=== PATIENT | female | born 1970 | race Caucasian/White ===

== ENCOUNTER 2020-02-08 08:14 | Emergency (ER) | payer BC, SELFPAY ==
[2020-02-08] VITALS (24 sets, daily range): BP systolic 25–118; BP diastolic 0–87; PULSE 82–119; RESP 8–32; O2SAT 96–100
[2020-02-08] MEDS: succinylcholine 20 mg/mL SDV 10mL 150 MG IVP (08:24)
--- NOTE | 2020-02-08 08:24 | XRR_ITS ---
PROCEDURE INFORMATION: Exam: XR Chest, 1 View Exam date and time: 02/08/2020 8:26 AM Age: 49 years old Clinical indication: Shortness of breath; Additional info: SOB TECHNIQUE: Imaging protocol: XR of the chest Views: 1 view. COMPARISON: No relevant prior studies available. FINDINGS: Tubes, catheters and devices: Partially imaged enteric tube reaching at least the mid gastric body. Endotracheal tube tip approximately 3 cm cephalad to the august in satisfactory position. Lungs: Unremarkable. No consolidation. Pleural space: Unremarkable. No evidence of pleural effusion or pneumothorax. Heart/Mediastinum: Unremarkable. No cardiomegaly. Bones/joints: Unremarkable. XR/XR chest 1V portable [id number] IMPRESSION: No acute findings. Support devices as described.
--- NOTE | 2020-02-08 08:24 | CTR_ITS ---
PROCEDURE INFORMATION: Exam: CT Head Without Contrast Exam date and time: 02/08/2020 8:37 AM Age: 49 years old Clinical indication: Altered mental status/memory loss; Prior surgery; Surgery type: Brain; Additional info: AMS TECHNIQUE: Imaging protocol: Computed tomography of the head without contrast. Radiation optimization: All CT scans at this facility use at least one of these dose optimization techniques: automated exposure control; mA and/or kV adjustment per patient size (includes targeted exams where dose is matched to clinical indication); or iterative reconstruction. COMPARISON: No relevant prior studies available. RADIATION DOSE METRICS: Total DLP (mGy-cm): 849.06 FINDINGS: Brain: 15 x 14 x 16 mm rim enhancing suprasellar mass (see image 28 series 601), nonspecific in the recent postsurgical setting. No intracranial hemorrhage. Normal martin-white differentiation with no evidence of edema or territorial infarct. No extra-axial fluid collection. Cerebral ventricles: No ventriculomegaly. Paranasal sinuses: Postsurgical changes of transsphenoidal pituitary resection with fractures of the ethmoid air cell walter and nasal septum and falling out of the sphenoid sinuses. Fluid/blood throughout the nasal cavity and scattered within the ethmoid air cells and nearly opacifying the right maxillary sinus. Bones: Postsurgical changes as above. Mastoid air cells: Visualized mastoid air cells are well aerated. Soft tissues: Unremarkable. CT/CT head wo con* [id number] IMPRESSION: 1. Postsurgical changes related to recent transsphenoidal pituitary tumor resection. There is a 16 mm rim enhancing suprasellar mass presumably representing postsurgical hemorrhage, although residual tumor is not excluded. 2. Otherwise no acute intra-axial findings. 3. Postsurgical changes involving the sinuses, with extensive fluid/blood throughout the nasal cavity and paranasal sinuses. Findings discussed with and acknowledged by sophia Herring at 02/08/2020 10:07 AM CDT with any questions answered. Radiation Dose CTDIVOL = (mGy): DLP = 849.06 (mGy-cm)
[2020-02-08] MEDS: sodium chloride 0.9% 1,000 ML 999 ML IV (08:25)
--- NOTE | 2020-02-08 08:25 | ECG_ITS ---
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 Measurements Intervals [place] Rate: 109 P: 76 MT: 144 QRS: 69 QRSD: 70 T: 81 QT: 337 QTc: 455 Interpretive Statements SINUS TACHYCARDIA ABNORMAL RHYTHM ECG No previous ECG available for comparison Electronically Signed On 02-08-2020 20:23:50 CDT by Waylon Ziegler M.D. [id number] f
[2020-02-08] MEDS: EPINEPHrine 0.1 mg/mL SYR 10 mL IVP (08:30)
--- NOTE | 2020-02-08 08:31 | W.ED.HEATRA ---
HPI - Head Injury General: Chief complaint: Head Injury Stated complaint: NOSE BLEED S/P SURGERY Time Seen by Provider: 02/08/20 08:24 Source: EMS Mode of arrival: EMS Limitations: altered mental status History of Present Illness: HPI Narrative: 49-year-old female came in by EMS. Patient had a pituitary tumor removed 2 weeks ago at [facility]. Family states she woke up this morning and had a severe nosebleed. Heema states they arrived and she had a nosebleed that since stopped but on the way here she has became altered unresponsive and hypotensive. Patient currently has tachypnea with shallow respirations and is completely unresponsive. She is pale and diaphoretic and hypotensive with blood pressure in the 50s. Not able to get any history from patient. Review of Systems General: Reports: ROS unobtainable due to medical condition PFS ED PFSH: Medical History (Updated 02/08/20 @ 14:27 by Ajay Cardona MD) Hypothyroidism Pituitary tumor Surgical History (Updated 02/08/20 @ 14:27 by Ajay Cardona MD) History of knee surgery History of tubal ligation Physical Exam Const: COMMON NORMALS: negative for patient oriented x3 EXAM LIMITATIONS: altered mental status GENERAL APPEARANCE: ill appearing and diaphoretic HENMT: COMMON NORMALS: normocephalic and atraumatic HEAD & SCALP: normocephalic and atraumatic OTHER: Dried blood in nares no active nosebleed Eye: COMMON NORMALS: Equal, round and reactive pupils present and EOMs intact bilaterally PUPIL: Yes Equal, round and reactive pupils present Neck/C-Spine: COMMON NORMALS: full ROM and supple Chest: COMMONS NORMALS: normal inspection of the chest and normal palpation of entire chest wall Resp: COMMON NORMALS: clear to auscultation bilaterally EFFORT & INSPECTION: Yes tachypneic, Yes respiratory distress and Yes decreased respiratory effort AUSCULTATION: clear to auscultation bilaterally Cardio: COMMON NORMALS: regular rhythm and No murmurs present (Cardio) RATE: tachycardic RHYTHM: regular rhythm GI: COMMON NORMALS: Normal to inspection, nondistended, normoactive bowel sounds present, Soft to palpation, non-tender and no masses PALPATION: Yes Soft to palpation Extremity: COMMON NORMALS: normal to inspection and full ROM Neuro: COMMON NORMALS: negative for patient oriented x3 Psych: COMMON NORMALS: negative for mental status grossly normal Skin: COMMON NORMALS: no rashes or lesions noted and no wounds GENERAL SKIN EXAM: no rashes or lesions noted Procedures Intubation sedative: Etomidate paralytic: Succinylcholine Laryngoscope: Cristobal Assist Device Used: fiber optic device ET Tube Size: 8 ET Tube Uncuffed: No Tube Secured Depth (cm): 25 Tube Secured Location: teeth Tube Placement Confirmation: visualized tube passing through cords, equal breath sounds bilaterally, no breath sounds over epigastrium and confirmation by capnometry Patient Tolerated Procedure: well Intubation Complications: none Course Reevaluation(s): Reevaluation #1: Patient was intubated upon arrival. I did give her 0.1 mL push dose pressor of epinephrine as her pressure was in the 40s. Will start on levo fed at this time. Will get head CT along with other blood work. She appears to be anemic as she is quite pale will order blood products. Time: 08:34 Vital Signs: Vital signs: Vital Signs Pulse Rate 91 02/08/20 12:32 Respiratory Rate 14 02/08/20 12:32 Blood Pressure 92/64 02/08/20 12:32 Pulse Oximetry 98 02/08/20 12:32 MDM - Head Injury MDM Narrative: Medical decision making narrative: Patient presents here initially in shock like it with hypovolemic shock from massive nosebleed. Patient here is much improved after blood products was given. Patient has been down the ER for quite some time as we are having difficulty finding placement. While patient was here blood pressure has stabilized and was able to wean her off of the pressors. Patient started to wake up roughly 3 hours in the stay and was able to follow all commands so I did extubate her. Spoke to multiple facilities [facility] and [facility] and all were on divert. Spoke to physician here who felt patient likely need neurosurgery and ENT which we do not have here. I did speak to [facility] in [place] and spoke to physician there along with ENT and they accepted there. Patient stable here and will transfer there. Lab Data: Labs: Lab Results 02/08/20 02/08/20 02/08/20 Range/Units 08:30 08:30 08:30 WBC 20.5 H (4.0-10.0) 10^3/ uL RBC 2.78 L (4.1-5.3) 10^6/u L Hgb 8.7 L (11.5-15.3) g/dL Hct 27.1 L (37.0-47.0) % MCV 97.5 (81-99) fL MCH 31.3 (28.0-34.0) pg MCHC 32.1 (30.0-36.0) g/dL RDW 13.8 (12.1-15.1) % Plt Count 707 H (130-400) 10^3/c mm MPV 11.3 H (7.4-10.4) fL Neut % (Auto) 48.8 % Lymph % (Auto) 44.0 % [place] % (Auto) 3.7 % Eos % (Auto) 1.9 % Baso % (Auto) 1.1 % Neut # (Auto) 10.01 H (1.8-7.7) 10^3/u L Lymph # (Auto) 9.0 H (0.8-4.8) 10^3/u L [place] # (Auto) 0.8 (0.2-0.9) 10^3/u L Eos # (Auto) 0.4 (0.0-0.8) 10^3/u L Baso # (Auto) 0.2 H (0.0-0.1) 10^3/u L Nucleated RBC % (a uto) 0 % Nucleated RBCs # 0.0 /100WBC PT 13.30 (12.1-14.9) SECO NDS INR 0.98 (0.8-1.2) Specimen Type Sample Site ABG pH (7.35-7.45) ABG pCO2 (35-45) mmHg ABG pO2 (80.0-100.0) mmH g ABG HCO3 (22-26) mmol/L ABG Base Excess (-2.0-2.0) mmol/ L Marcus Test Hematocrit (37-47) % Hgb O2 Saturation (95-100) % Carboxyhemoglobin (0.4-20.1) %THgb Methemoglobin (0.4-1.5) % Total Hemoglobin (12-16) g/dL O2 Delivery Device Mechanical Rate FiO2 % Tidal Volume PEEP cmH20 Sport Shoe Spike Assembler ID Sodium 130 L (136-145) mmol/L Potassium 3.1 L (3.5-5.1) mmol/L Chloride 95 L (98-107) mmol/L Carbon Dioxide 19 L (22-29) mmol/L Anion Gap 19.1 H (5-19) BUN 14 (6-20) mg/dL Creatinine 1.0 H (0.5-0.9) mg/dL GFR Calculation 59.4 L (90-130) mL/min Glucose 219 H (65-115) mg/dL Calculated Osmolal ity 277 L (285-295) mOsm/k g Lactate (0.5-2.2) mmol/L Calcium 8.2 L (8.5-10.5) mg/dL Magnesium 2.3 (1.7-2.3) mg/dL Total Bilirubin 0.3 (0.15-1.2) mg/dL AST 23 (0-32) U/L ALT 36 H (0-33) U/L Alkaline Phosphata se 95 (35-105) IU/L Total Protein 6.1 L (6.6-8.7) g/dL Albumin 3.1 L (3.5-5.2) g/dL Globulin 3.0 (1.3-4.6) g/dL Random Cortisol (2.47-19.5) ug/m L Urine Color (Yellow) Urine Appearance (CLEAR) Urine pH (5-7) Ur Specific Gravit y (1.005-1.030) Urine Protein (Negative) Urine Glucose (UA) (Normal) Urine Ketones (Negative) Urine Blood (Negative) Urine Nitrate (Negative) Urine Bilirubin (Negative) Urine Urobilinogen (Negative) mg/dL Ur Leukocyte Karena ase (Negative) Urine RBC (0-2) /hpf Urine WBC (0-5) /hpf Ur Squamous Epith Cells (0-5) /hpf Calcium Oxalate Cr ystal /hpf Amorphous Sediment Urine Bacteria (NONE) /hpf Blood Type Rho(D) Type Antibody Screen Crossmatch 02/08/20 02/08/20 02/08/20 Range/Units 08:30 08:34 08:50 WBC (4.0-10.0) 10^3/ uL RBC (4.1-5.3) 10^6/u L Hgb (11.5-15.3) g/dL Hct (37.0-47.0) % MCV (81-99) fL MCH (28.0-34.0) pg MCHC (30.0-36.0) g/dL RDW (12.1-15.1) % Plt Count (130-400) 10^3/c mm MPV (7.4-10.4) fL Neut % (Auto) % Lymph % (Auto) % [place] % (Auto) % Eos % (Auto) % Baso % (Auto) % Neut # (Auto) (1.8-7.7) 10^3/u L Lymph # (Auto) (0.8-4.8) 10^3/u L [place] # (Auto) (0.2-0.9) 10^3/u L Eos # (Auto) (0.0-0.8) 10^3/u L Baso # (Auto) (0.0-0.1) 10^3/u L Nucleated RBC % (a uto) % Nucleated RBCs # /100WBC PT (12.1-14.9) SECO NDS INR (0.8-1.2) Specimen Type Arterial Sample Site Brachial, left ABG pH 7.34 L (7.35-7.45) ABG pCO2 31.5 L (35-45) mmHg ABG pO2 497.0 H (80.0-100.0) mmH g ABG HCO3 16.8 L (22-26) mmol/L ABG Base Excess -8.2 L (-2.0-2.0) mmol/ L Marcus Test N/a Hematocrit 20.0 L (37-47) % Hgb O2 Saturation 98.7 (95-100) % Carboxyhemoglobin 0.7 (0.4-20.1) %THgb Methemoglobin 1.2 (0.4-1.5) % Total Hemoglobin 6.5 L (12-16) g/dL O2 Delivery Device Vent Mechanical Rate 15.0 FiO2 100.0 % Tidal Volume 0.40 PEEP 8.0 cmH20 Sport Shoe Spike Assembler ID Ed Sodium (136-145) mmol/L Potassium (3.5-5.1) mmol/L Chloride (98-107) mmol/L Carbon Dioxide (22-29) mmol/L Anion Gap (5-19) BUN (6-20) mg/dL Creatinine (0.5-0.9) mg/dL GFR Calculation (90-130) mL/min Glucose (65-115) mg/dL Calculated Osmolal ity (285-295) mOsm/k g Lactate 3.7 H (0.5-2.2) mmol/L Calcium (8.5-10.5) mg/dL Magnesium (1.7-2.3) mg/dL Total Bilirubin (0.15-1.2) mg/dL AST (0-32) U/L ALT (0-33) U/L Alkaline Phosphata se (35-105) IU/L Total Protein (6.6-8.7) g/dL Albumin (3.5-5.2) g/dL Globulin (1.3-4.6) g/dL Random Cortisol (2.47-19.5) ug/m L Urine Color Yellow (Yellow) Urine Appearance Sl hazy (CLEAR) Urine pH 6 (5-7) Ur Specific Gravit y 1.015 (1.005-1.030) Urine Protein Neg (Negative) Urine Glucose (UA) Norm (Normal) Urine Ketones Negative (Negative) Urine Blood Neg (Negative) Urine Nitrate Negative (Negative) Urine Bilirubin Neg (Negative) Urine Urobilinogen Norm (Negative) mg/dL Ur Leukocyte Karena ase Negative (Negative) Urine RBC None (0-2) /hpf Urine WBC 0-4 H (0-5) /hpf Ur Squamous Epith Cells 15-25 H (0-5) /hpf Calcium Oxalate Cr ystal 0-4 H /hpf Amorphous Sediment Not Reportable Urine Bacteria 1+ H (NONE) /hpf Blood Type Rho(D) Type Antibody Screen Crossmatch 02/08/20 02/08/20 Range/Units 08:53 12:05 WBC (4.0-10.0) 10^3/ uL RBC (4.1-5.3) 10^6/u L Hgb (11.5-15.3) g/dL Hct (37.0-47.0) % MCV (81-99) fL MCH (28.0-34.0) pg MCHC (30.0-36.0) g/dL RDW (12.1-15.1) % Plt Count (130-400) 10^3/c mm MPV (7.4-10.4) fL Neut % (Auto) % Lymph % (Auto) % [place] % (Auto) % Eos % (Auto) % Baso % (Auto) % Neut # (Auto) (1.8-7.7) 10^3/u L Lymph # (Auto) (0.8-4.8) 10^3/u L [place] # (Auto) (0.2-0.9) 10^3/u L Eos # (Auto) (0.0-0.8) 10^3/u L Baso # (Auto) (0.0-0.1) 10^3/u L Nucleated RBC % (a uto) % Nucleated RBCs # /100WBC PT (12.1-14.9) SECO NDS INR (0.8-1.2) Specimen Type Sample Site ABG pH (7.35-7.45) ABG pCO2 (35-45) mmHg ABG pO2 (80.0-100.0) mmH g ABG HCO3 (22-26) mmol/L ABG Base Excess (-2.0-2.0) mmol/ L Marcus Test Hematocrit (37-47) % Hgb O2 Saturation (95-100) % Carboxyhemoglobin (0.4-20.1) %THgb Methemoglobin (0.4-1.5) % Total Hemoglobin (12-16) g/dL O2 Delivery Device Mechanical Rate FiO2 % Tidal Volume PEEP cmH20 Sport Shoe Spike Assembler ID Sodium (136-145) mmol/L Potassium (3.5-5.1) mmol/L Chloride (98-107) mmol/L Carbon Dioxide (22-29) mmol/L Anion Gap (5-19) BUN (6-20) mg/dL Creatinine (0.5-0.9) mg/dL GFR Calculation (90-130) mL/min Glucose (65-115) mg/dL Calculated Osmolal ity (285-295) mOsm/k g Lactate (0.5-2.2) mmol/L Calcium (8.5-10.5) mg/dL Magnesium (1.7-2.3) mg/dL Total Bilirubin (0.15-1.2) mg/dL AST (0-32) U/L ALT (0-33) U/L Alkaline Phosphata se (35-105) IU/L Total Protein (6.6-8.7) g/dL Albumin (3.5-5.2) g/dL Globulin (1.3-4.6) g/dL Random Cortisol 109.50 H (2.47-19.5) ug/m L Urine Color (Yellow) Urine Appearance (CLEAR) Urine pH (5-7) Ur Specific Gravit y (1.005-1.030) Urine Protein (Negative) Urine Glucose (UA) (Normal) Urine Ketones (Negative) Urine Blood (Negative) Urine Nitrate (Negative) Urine Bilirubin (Negative) Urine Urobilinogen (Negative) mg/dL Ur Leukocyte Karena ase (Negative) Urine RBC (0-2) /hpf Urine WBC (0-5) /hpf Ur Squamous Epith Cells (0-5) /hpf Calcium Oxalate Cr ystal /hpf Amorphous Sediment Urine Bacteria (NONE) /hpf Blood Type O Positive Rho(D) Type Positive Antibody Screen Negative Crossmatch See Detail Imaging Data^: CT Head: Attestation: I personally reviewed and interpreted this imaging study as follows: Radiologist's impression: [address] [address] [address] Scan Report Signed Patient: Ilene John Unit #: [id number] : 1970 Age/Sex: 49 / F ADM Date: 02/08/20 Loc: ER Room/Bed: Attending Dr: Ordering Provider/Ordering MD: Annamaria Sage MD Date of Service: 02/08/20 Procedure(s): CT head wo con* [id number] Accession Number(s): [id number] Report Number: [id number] PROCEDURE INFORMATION: Exam: CT Head Without Contrast Exam date and time: 02/08/2020 8:37 AM Age: 49 years old Clinical indication: Altered mental status/memory loss; Prior surgery; Surgery type: Brain; Additional info: AMS TECHNIQUE: Imaging protocol: Computed tomography of the head without contrast. Radiation optimization: All CT scans at this facility use at least one of these dose optimization techniques: automated exposure control; mA and/or kV adjustment per patient size (includes targeted exams where dose is matched to clinical indication); or iterative reconstruction. COMPARISON: No relevant prior studies available. RADIATION DOSE METRICS: Total DLP (mGy-cm): 849.06 FINDINGS: Brain: 15 x 14 x 16 mm rim enhancing suprasellar mass (see image 28 series 601), nonspecific in the recent postsurgical setting. No intracranial hemorrhage. Normal martin-white differentiation with no evidence of edema or territorial infarct. No extra-axial fluid collection. Cerebral ventricles: No ventriculomegaly. Paranasal sinuses: Postsurgical changes of transsphenoidal pituitary resection with fractures of the ethmoid air cell walter and nasal septum and falling out of the sphenoid sinuses. Fluid/blood throughout the nasal cavity and scattered within the ethmoid air cells and nearly opacifying the right maxillary sinus. Bones: Postsurgical changes as above. Mastoid air cells: Visualized mastoid air cells are well aerated. Soft tissues: Unremarkable. CT/CT head wo con* [id number] IMPRESSION: 1. Postsurgical changes related to recent transsphenoidal pituitary tumor resection. There is a 16 mm rim enhancing suprasellar mass presumably representing postsurgical hemorrhage, although residual tumor is not excluded. 2. Otherwise no acute intra-axial findings. 3. Postsurgical changes involving the sinuses, with extensive fluid/blood throughout the nasal cavity and paranasal sinuses. CXR: Radiologist's impression: [address] [address] XRay Report Signed Patient: Ilene John Unit #: [id number] : 1970 Age/Sex: 49 / F ADM Date: 02/08/20 Loc: ER Room/Bed: Attending Dr: Ordering Provider/Ordering MD: Annamaria Sage MD Date of Service: 02/08/20 Procedure(s): XR chest 1V portable [id number] Accession Number(s): [id number] Report Number: [id number] PROCEDURE INFORMATION: Exam: XR Chest, 1 View Exam date and time: 02/08/2020 8:26 AM Age: 49 years old Clinical indication: Shortness of breath; Additional info: SOB TECHNIQUE: Imaging protocol: XR of the chest Views: 1 view. COMPARISON: No relevant prior studies available. FINDINGS: Tubes, catheters and devices: Partially imaged enteric tube reaching at least the mid gastric body. Endotracheal tube tip approximately 3 cm cephalad to the august in satisfactory position. Lungs: Unremarkable. No consolidation. Pleural space: Unremarkable. No evidence of pleural effusion or pneumothorax. Heart/Mediastinum: Unremarkable. No cardiomegaly. Bones/joints: Unremarkable. XR/XR chest 1V portable [id number] IMPRESSION: No acute findings. Support devices as described. Critical Care Time Critical Care Time: Critical Care Time: Yes Total Critical Care Time: 36 Attestation: This case had a high probability of a clinically significant, sudden, or life threatening deterioration of this patient's condition which required my full and direct attention, intervention and personal management. Discharge Plan Discharge Patient Disposition: Xfer Other Clinical Impression: Hypovolemic shock, Epistaxis Condition: Stable Discharge Orders: Transfer Out of Facility (Order); Ordered 02/08/20 Ordered By: Annamaria Sage Referrals: Rae Conway MD [Primary Care Provider] - Coding Level of Care Code ED Senior Games Technician for Chg Fwd Exam Comprehensive
[2020-02-08] MEDS: hydrocortisone 100 mg/2 mL SDV IVP (08:39)
[2020-02-08] MEDS: vecuronium 10 mg SDV IVP (08:43)
[2020-02-08 08:44] LABS: ABG PCO2 31.5 mmHg (35-45); ABG PH Result 7.34 (7.35-7.45); Base Excess ABG -8.2 mmol/L (-2.0-2.0); Blood Gas Sample Type Arterial; Carboxyhemoglobin 0.7 %THgb (0.4-20.1); HCO3 ABG 16.8 mmol/L (22-26); HGB O2 Sat 98.7 % (95-100); Methemoglobin 1.2 % (0.4-1.5); Total Hemoglobin 6.5 g/dL (12-16)
[2020-02-08 08:46] LABS: Blood Gas Operator Identificat ED; Blood Gas Sample Site Brachial, left; Oxygen Device VENT
[2020-02-08 08:58] LABS: Basophils # 0.2 10^3/uL (0.0-0.1); Basophils % 1.1 %; Eosinophils # 0.4 10^3/uL (0.0-0.8); Eosinophils % 1.9 %; Hematocrit 27.1 % (37.0-47.0); Hemoglobin 8.7 g/dL (11.5-15.3); Mean Corpuscular HGB Conc 32.1 g/dL (30.0-36.0); Mean Corpuscular Hemoglobin 31.3 pg (28.0-34.0); Mean Corpuscular Volume 97.5 fL (81-99); Mean Platelet Volume 11.3 fL (7.4-10.4); Monocytes # 0.8 10^3/uL (0.2-0.9); Monocytes % 3.7 %; Neutrophils # 10.01 10^3/uL (1.8-7.7); Neutrophils % 48.8 %; Nucleated Red Blood Cells % 0 %; Platelet Count 707 10^3/cmm (130-400); Red Blood Count 2.78 10^6/uL (4.1-5.3); Red Cell Distribution Width 13.8 % (12.1-15.1); White Blood Count 20.5 10^3/uL (4.0-10.0)
[2020-02-08 09:08] LABS: Add Urine Microscopic? YES; Bilirubin Urine Neg (Negative); Blood Urine Neg (Negative); Glucose Urine UA Norm (Normal); Ketones Urine Negative (Negative); Leukocyte Esterase Urine Negative (Negative); Nitrate Urine Negative (Negative); Protein Urine Neg (Negative); Specific Gravity, Urine 1.015 (1.005-1.030); Urine Appearance SL Hazy (CLEAR); Urine Color Yellow (Yellow); Urobilinogen Urine Norm (Negative); pH Urine 6 (5-7)
[2020-02-08 09:10] LABS: INR 0.98 (0.8-1.2)
[2020-02-08 09:10] LABS: Add Urine Culture? No; Bacteria Urine 1+ /hpf; Calcium Oxalate Crystals Urine 0-4 /hpf; Squamous Epithelial Cell Urine 15-25 /hpf (0-5); WBC Urine 0-4 /hpf (0-5)
[2020-02-08 09:15] LABS: Alanine Aminotransferase 36 U/L (0-33); Albumin Level 3.1 g/dL (3.5-5.2); Alkaline Phosphatase 95 IU/L (35-105); Blood Urea Nitrogen 14 mg/dL (6-20); Calcium 8.2 mg/dL (8.5-10.5); Carbon Dioxide 19 mmol/L (22-29); Chloride 95 mmol/L (98-107); Glomerular Filtration Rate 59.4 mL/min (90-130); Glucose 219 mg/dL (65-115); Lactate (Lactic Acid level) 3.7 mmol/L (0.5-2.2); Magnesium 2.3 mg/dL (1.7-2.3); Osmolality Calculated 277 mOsm/kg (285-295); Sodium 130 mmol/L (136-145); Total Bilirubin 0.3 mg/dL (0.15-1.2); Total Protein 6.1 g/dL (6.6-8.7)
[2020-02-08 09:17] LABS: Anion Gap 19.1 (5-19); Potassium 3.1 mmol/L (3.5-5.1)
[2020-02-08 09:18] LABS: Aspartate Amino Transferase 23 U/L (0-32)
[2020-02-08 10:02] LABS: Slide Review Slide Review Perform
--- NOTE | 2020-02-08 10:12 | PC.RESP ---
ER notified therapist about patient going to CT twice. Therapist was in a code at this time. When therapist got down to ER, nurse of patient had patient unhooked from vent and had them in CT already. Nurse was bagging patient at this time. Therapist took over at this time. When patient was done with CT, the nurse and therapist took patient back to the room where the therapist found the vent alarming and still in activation mode (because vent was not put on standby at the time of transfer by the nurse).
--- NOTE | 2020-02-08 11:01 | PC.NURSE ---
Patient responding appropriately to verbal commands. ETT removed. NC applied. Patient able to maintain her own airway.
[2020-02-08] MEDS: cefTRIAXone 1,000 MG in sodium chloride 0.9% (plus) 50 ML 100 MG IV (13:51)
[2020-02-08] MEDS: azithromycin 500 MG in sodium chloride 0.9% 250 ML 250 MG IV (13:52)
--- NOTE | 2020-02-08 14:24 | PM.CONSULT ---
Providers/Reason For Consult Consulting Physican/Specialty*: Ajay Cardona hospitalist Reason for Consult*: Nosebleed Primary Care Provider: Rae Conway MD History of Present Illness History of Present Illness Ilene John is a 49 year old female who came into the emergency department with complaints of severe right-sided nosebleed. This occurred abruptly, around 6:30 AM right sided. She became unresponsive, and required significant resuscitation in the emergency department including intubation. She required pressors. She is currently getting a blood transfusion. The emergency department physician alerts me that the bleeding stopped abruptly while all of this was going on. Patient's , and patient who is now extubated report that she had a similar nosebleed 1 week ago, but not as severe. She reported it occurred abruptly, and stopped abruptly. 1 week prior to that she had pituitary surgery, through her nasal cavity. She denies any headache, fever. She was confused, following extubation but is gradually improving according to . Review of Systems General: Reports: 10 or more systems reviewed and unremarkable except in HPI and below Const: Denies: fever(s) Eyes: Denies: change in vision ENMT: Denies: throat pain Card: Denies: chest pain Resp: Denies: dyspnea GI: Denies: abdominal pain : Denies: flank pain Musc: Denies: neck pain Skin/Breast: Denies: rash Neuro: Denies: headache(s) Endo: Denies: polyuria All/Imm: Denies: urticaria Meds/Allergies Home Medications and Allergies Home Medications Medication Instructions Recorded Confirmed Last Taken Type [place] See Rx Instructions .ROUTE .COMPLEX 02/08/20 02/08/20 Unknown History Synthroid See Rx Instructions .ROUTE .COMPLEX 02/08/20 02/08/20 Unknown History hydrochlorothiazide See Rx Instructions .ROUTE .COMPLEX 02/08/20 02/08/20 Unknown History Current Medications Current Medications Generic Name Dose Route Start Last Admin Trade Name Freq PRN Reason Stop Dose Admin Fentanyl 1,000 mcg/ Sodium 100 mls @ 0 mls/hr 02/08/20 08:30 02/08/20 08:54 Chloride IV 50 mcg/hr .Q0M MARTIN 5 mls/hr Administration Protocol Per Protocol Norepinephrine Bitartrate 4 mg 254 mls @ 0 mls/hr 02/08/20 08:30 02/08/20 12:15 / Dextrose IV 0 mcg/min .Q0M MARTIN 0 mls/hr Titration Protocol Per Protocol PFSH Acute PFSH: Medical History (Updated 02/08/20 @ 14:28 by Ajay Cardona MD) Hypothyroidism Pituitary tumor Surgical History (Updated 02/08/20 @ 14:27 by Ajay Cardona MD) History of knee surgery History of tubal ligation Family History (Updated 02/08/20 @ 14:27 by Ajay Cardona MD) Other CAD (coronary artery disease) Social History (Updated 02/08/20 @ 14:27 by Ajay Cardona MD) Smoking and tobacco status: never smoked Alcohol intake: never Substance/Drug Use: never Vitals/I&O/Wt Last Vital Signs Pulse 91 02/08/20 12:32 Resp 14 02/08/20 12:32 BP 92/64 02/08/20 12:32 Pulse Ox 98 02/08/20 12:32 02/07/20 02/08/20 02/08/20 22:59 06:59 14:59 Intake Total 70.352 / 70.352 Balance 70.352 / 70.352 Physical Exam Narrative: EXAM NARRATIVE: General exam no apparent distress, slow to speak Neurologic: No obvious focal deficit HEENT: Pupils equally round. Slight amount of blood right nares. Oropharynx clear. Neck supple no lymphadenopathy thyromegaly Cardiovascular regular rate and rhythm without murmur Lungs clear Abdomen is soft with positive bowel sounds. No obvious organomegaly was deferred Extremities no cyanosis clubbing or edema, cap refill brisk Skin no rash Urinary Catheter Management^: Varma: Cath Placed During This Visit: yes Reason for Continuing Indwelling Catheter: Other Urinary Catheter Date of Insertion: 02/08/20 Urinary Catheter Time of Insertion: 08:37 Data Micro: Micro: Microbiology 02/08/20 12:00 Blood Culture - Pr eliminary Blood SPECIMEN [facility] 02/08/20 12:05 Blood Culture - Pr eliminary Blood SPECIMEN [facility] Other Data: Other data: pH 7.34, PCO2 31, PO2 497 on ventilator at 100% FiO2 Urine contaminated with significant squamous epithelial Random cortisol approximately 110 LFTs normal with ALT slight elevation of 36 INR 0.98 Chest x-ray no infiltrate CT head postsurgical changes at pituitary tumor resection, possibly representing postsurgical hemorrhage. Extensive fluid and blood throughout the nasal cavity and paranasal sinuses A&P Assessment and plan (1) Epistaxis: Unclear if this was a significant sinus bleed, secondary to her postoperative status. She had another bleed 1 week ago. Severe and acute. She requires ENT and neurosurgical evaluation. I feel uncomfortable managing this without their support considering blood noticed in sinus on CT, recent neurosurgical status and no availability of neurosurgical or ENT services here. At this point they are reviewing other options for transfer of the patient as her neurosurgeon at [facility] does not have any bed availability. I reviewed with the family here our limitations, should we not be able to arrange transfer. Status: Acute (2) Hypovolemic shock: Secondary to acute blood loss Agree with transfusion per the emergency department secondary to patient's hypotensive state Status: Acute (3) Acute anemia: Secondary to acute blood loss with concerned this is bleeding from sinus, from her previous surgical site with pituitary removal 2 weeks ago See above Status: Acute Additional A&P Information History of hypothyroidism History of pituitary removal, currently on hydrocortisone. She received a dose of hydrocortisone by the emergency department. Full code Holding all anticoagulation secondary to bleeding Consult Attestations Medical Necessity Statement: Not applicable Coding Level of Care Code Acute [employer] for [employer] Isidro Diagnoses Epistaxis R04.0 Hypovolemic shock R57.1 Acute anemia D64.9
[2020-02-08] MEDS: ondansetron 2 mg/ML SDV 2 mL 4 MG IVP (17:30)
== END 2020-02-08 17:55 | disposition other institution (70) ==
PROVIDERS: Emergency Provider Emergency Medicine; PCP Family Medicine
DX: R04.0 Epistaxis (principal); R57.1 Hypovolemic shock
CPT/HCPCS: 12345; 31500; 36415; 36600; 51702; 70450; 71045; 80053; 81001; 82533; 82805; 83605; 83735; 85025; 85610; 86850; 86900; 86920; 87040; 93005; 94002; 94799; 96365; 96366; 96367; 96368; 96375; 99284; 99291; J0171; J0330; J0456; J0696; J1720; J2405; J3010; J3490; J7030; J7050; P9016